=== PATIENT | male | born 1955 | race Caucasian/White ===

== ENCOUNTER → 2018-09-05 | Outpatient (CLI) | payer BC ==
--- NOTE | 2018-09-05 10:05 | PCVCIMAG ---
APPROVED REPORT Laterality: Bilateral Indications Amaurosis Fugax Doppler Spectral Velocity Analysis PSV / EDVPSV / EDV ECA (R) 89 / 12 cm/sECA (L) 65 / 5 cm/s dICA (R) 77 / 24 cm/sdICA (L) 83 / 23 cm/s Alireza (R) 71 / 21 cm/smICA (L) 83 / 20 cm/s pICA (R) 77 / 11 cm/spICA (L) 100 / 23 cm/s Bulb (R) 85 / 13 cm/sBulb (L) 74 / 12 cm/s dCCA (R) 94 / 15 cm/sdCCA (L) 84 / 12 cm/s mCCA (R) 95 / 16 cm/smCCA (L) 97 / 14 cm/s Vert (R) 57 / 11 cm/sVert (L) 52 / 9 cm/s ICA/CCA 0.82ICA/CCA 1.19 Findings The right carotid bulb has minimal plaque. The right proximal internal carotid artery shows no significant stenosis. The right common carotid artery shows no significant stenosis. The right external carotid artery shows no significant stenosis. The left carotid bulb has mild plaque. The left proximal internal carotid artery shows no significant stenosis. The left common carotid artery shows no significant stenosis. The left external carotid artery shows no significant stenosis. Conclusion 1. No significant stenosis involving either carotid artery 2. Antegrade vertebral flow
== END | disposition home or self-care (01) ==
LOC: PCVCIMAG 13:00
PROVIDERS: ATTEND Neuromusculoskeletal Medicine & OMM
DX: G45.3 Amaurosis fugax (principal); G45.1 Carotid artery syndrome (hemispheric)
CPT/HCPCS: 93880